=== PATIENT | female | born 1965 | race Caucasian/White ===

== ENCOUNTER 2016-05-29 11:52 | Observation (INO) ==
[2016-05-29] MEDS ORDERED: NS 1,000 ML IV SCH (12:15)
[2016-05-29] MEDS ORDERED: DEPO-PROVERA IM ONE (12:22)
[2016-05-29 13:06] LABS: RBC 2.11 XMIL (4.2-5.4)
[2016-05-29 13:07] LABS: BASO% 0.6 % (0.0-0.8); EOS# 0.34 X1000 (0.0-0.7); EOS% 4.9 % (0.0-10.0); HEMATOCRIT 18.1 % (37.0-47.0); IMM GRAN# 0.02 X1000 (0.0-0.04); IMM GRAN% 0.3 % (0.0-0.5); LYMPH# 1.81 X1000 (1.2-3.4); LYMPH% 25.9 % (20.5-51.1); MANUAL DIFF NEEDED? NO; MCH 26.1 PG (27-31); MCHC 30.4 g/dL (33-37); MCV 85.8 FL (81-99); MONO# 0.74 X1000 (0.11-0.59); MONO% 10.6 % (1.7-9.3); MPV 8.9 FL (7.4-10.4); NEUT% 57.7 % (42.2-75.2); PLT 384 X1000 (130-400)
[2016-05-29 13:09] LABS: HEMOGLOBIN 5.5 g/dL (12.0-16.0)
--- NOTE | 2016-05-29 14:46 | HISTORY AND PHYSICAL ---
CHIEF COMPLAINT: Heavy period x4 weeks, and weakness. PRESENT ILLNESS: This is the first recent [facility] admission for this 50-year-old, white female with heavy period for 4 weeks, who has had similar problems before and usually had gone to Dr. Flores, receiving some pills which stopped her bleeding. She presented to my office today since Dr. Flores was out of town, and was noticed noted to be very pale. Hemoglobin was 5. She is admitted for transfusion and for POTTERY DECORATION DESIGNER consultation. PAST MEDICAL HISTORY: No recent hospitalizations or surgery. PRESENT MEDICATIONS: None . ALLERGIES: None known. REVIEW OF SYSTEMS: Spotting for about a week before period began and moderately heavy periods for 4 weeks. She has felt weak especially when going up stairs. She has had occasional dizziness. She has had no nausea or vomiting, and no diarrhea. There have been no nose bleeds or increased bruising. She has had no dysuria. FAMILY HISTORY: Unremarkable. SOCIAL HISTORY: . Lives with her . No significant smoking or alcohol usage. PHYSICAL EXAMINATION: VITAL SIGNS: Temperature 98.3 degrees, heart rate 88, respiration 20, blood pressure 131/72. O2 saturation on room air 100%. Weight estimated 150 pounds. Height 5 feet 7 inches. GENERAL: Patient is a well-developed, well-nourished, white female with pale mucous membranes. HEENT: Pupils equal, round, and reactive to light. Tympanic membranes without inflammation. Pharynx benign with no erythema or exudate. NECK: Supple with no mass or lymphadenopathy. HEART: Regular in rate and rhythm with no murmur, rub or gallop. LUNGS: Clear with no rales or rhonchi. ABDOMEN: Soft with no mass, tenderness, or organomegaly. EXTREMITIES: No cyanosis, clubbing, or edema. PELVIC AND RECTAL: Deferred. IMPRESSION: Perimenopausal bleeding, menorrhagia, moderately severe anemia. PLAN: Admit for transfusion and POTTERY DECORATION DESIGNER consultation. Pelvic ultrasound is ordered.
--- NOTE | 2016-05-29 16:20 | Diag Imaging Result Document ---
PROCEDURE NAME: US PELVIC NON-SPLITTER HAND COMPLETE - 05/29/2016 ULTRASOUND PELVIS: TECHNIQUE: Exam performed using transabdominal probe. No comparison exam. FINDINGS: The uterus measures 12.4 cm in length by 7.2 x 5.7 cm in diameter. The uterus appears nongravid with dual-layer endometrial thickness of 0.8 cm. The myometrium demonstrates homogeneous echotexture. There is no discrete uterine lesion identified. The right ovary measures 5.6 x 4.2 x 2.2 cm in size. The left ovary measures 5.1 x 2.5 x 4.4 cm in size. The bilateral ovaries demonstrate blood flow signal on Doppler images. There is a 2.3 x 1.6 x 2.4 cm left ovarian cyst. There is no other adnexal mass identified. There is no free fluid seen. IMPRESSION: 1. Dual layer endometrial thickness of 0.8 cm. No visible discrete uterine lesion. 2. A 2.4 cm left ovarian cyst. No other adnexal mass or free fluid seen. [facility]
--- NOTE | 2016-05-29 17:04 | CONSULTATION ---
DATE OF CONSULTATION: 05/29/2016 REFERRING PHYSICIAN: Dr. Terrance Dempsey. REASON FOR CONSULTATION: Menorrhagia with anemia. SUMMARY: Ute Nina is a 50-year-old, 3, para 3, who states that she normally has heavy menstrual cycles. She has never stopped having periods though they are becoming further apart. Her last menstrual cycle began 5 weeks ago. She states that it is heavier than her normal cycles, that she was passing some clots. She is patient of Dr. Flores and saw him last 1 year ago. She has an appointment to see him next Wednesday. She presented to Dr. Dempsey's office today with fatigue. She was found to be anemic. Her H and H is 5.5/18.1. Platelet count is 384,000. She does state that the bleeding has slowed some. We did an ultrasound. No uterine leiomyomata were noted. There is a simple cyst on the right ovary. The endometrial thickening is 8 mm. PAST MEDICAL HISTORY: Patient has no chronic medical or surgical illnesses. She has had a tubal sterilization in the past. She has had 3 vaginal deliveries. PHYSICAL EXAMINATION: General: Shows a well-developed, well-nourished female. Vital Signs: Are stable with a pulse rate of 85 with a blood pressure of 114/65. Her temperature is 99 degrees. Abdomen: Soft, and nontender. IMPRESSION: Menorrhagia with resultant anemia. This is probably anovulatory bleeding. PLAN: I certainly agree with blood transfusion. Also agree with progesterone therapy. Depo- Provera is certainly a long-term choice but initially may want to add Provera 10 mg, 2 tablets every 8 hours for the next 3-5 days. This will take effect a lot quicker than the Depo-Provera. Long-term we need to consider a dilatation and curettage and endometrial ablation versus hysterectomy. She is more than welcome to follow with me and I have given her my name and phone number or follow up with Dr. Flores.
[2016-05-29 19:18] VITALS: BP 120/60
--- NOTE | 2016-05-29 19:47 | DISCHARGE SUMMARY ---
ADMISSION DATE: 05/29/2016 DISCHARGE DATE: 05/29/2016 FINAL DIAGNOSIS: Perimenopausal menorrhagia, moderately severe anemia secondary to vaginal bleeding. CONSULTATION: Saulo Rai M.D. DISCHARGE MEDICATIONS: 1. Fusion Plus vitamins (30 with 1 refill) 1 daily. 2. Provera 10 mg (24) 2 q.8 hours. HISTORY: This is the first recent [facility] admission for this 50-year-old, white female with heavy period x4 weeks. She presented to the office when she was unable to get an appointment with her usual COIL TAPER physician, Dr. Flores. She was weak and obviously anemic. Hemoglobin was 5. Blood pressure was 120/60. She was admitted for transfusion and COIL TAPER consultation. INITIAL LABORATORY: Hemoglobin 5.5, hematocrit 18.1, white blood count 6900, with 58% neutrophils. HOSPITAL COURSE: She was transfused 2 units of blood. Blood pressure remained stable. Dr. Rai recommended in addition to Depo-Provera 150 mg that she receive Provera tablets 10 mg 2 q.8 hours times 3-5 days. Her bleeding has slowed somewhat. She is feeling well. She is discharged home with followup either by Dr. Flores or Dr. Rai. Endometrial biopsy will be considered. Pelvic ultrasound revealed no significant thickening of the endometrial wall. Also there were no fibroids.
== END 2016-05-29 21:40 | disposition home or self-care (01) ==
LOC: P.EDIPHOLD 11:52 → P.MEDSURG 12:10
PROVIDERS: ADMIT Family Medicine; ATTEND Family Medicine
DX: N92.4 Excessive bleeding in the premenopausal period (principal); D50.0 Iron deficiency anemia secondary to blood loss (chronic); N83.291 Other ovarian cyst, right side; R93.8 Abnormal findings on diagnostic imaging of other specified body structures; R53.1 Weakness
CPT/HCPCS: 36415; 76856; 85025; 86850; 86900; 86901; 86920; J1050; J7030; P9016